=== PATIENT | female | born 1945 ===

== ENCOUNTER → 2023-10-17 11:16 | Outpatient (REF) | payer MEDICARE, SELFPAY | LOC: HWWDC 11:16 | PROVIDERS: ATTENDING PHYSICIAN Family Medicine | DX: Z12.31 Encounter for screening mammogram for malignant neoplasm of breast (principal) | CPT/HCPCS: 77063; 77067 ==

== ENCOUNTER → 2023-12-26 10:49 | Outpatient (REF) | payer MEDICARE, SELFPAY | LOC: HWRAD 10:49 | PROVIDERS: ATTENDING PHYSICIAN Family Medicine | DX: M85.80 Other specified disorders of bone density and structure, unspecified site (principal) | CPT/HCPCS: 77080 ==

== ENCOUNTER → 2024-04-23 13:35 | Outpatient (REF) | payer MEDICARE, SELFPAY | LOC: WDC 13:35 | PROVIDERS: ATTENDING PHYSICIAN Family Medicine | DX: R92.2 Inconclusive mammogram (principal) | CPT/HCPCS: 76641 ==